=== PATIENT | female | born 1955 | race Hispanic/Latino ===

== ENCOUNTER → 2019-01-18 | Outpatient (CLI) | payer MEDICARE ==
--- NOTE | 2019-01-18 15:16 | Diagnostic Imaging Report ---
EXAM: BONE MINERAL DENSITY HISTORY: Bone mineralization evaluation COMPARISON: None DISCUSSION: Evaluation of the left hip and lumbar spine was performed utilizing DEXA Hologic bone densitometer. The study is technically adequate. Left hip femoral neck bone mineral density: 0.56 g/cm2, T-score is -2.6, Z-score is -1.2. Left hip total bone mineral density: 0.62 g/cm2, T-score is -2.6, Z-score is -1.4. Lumbar spine total bone mineral density: 0.57 gm/cm2, T-score is -4.3, Z-score is -2.6. Impression: Bone mineralization by WHO Classification is osteoporosis, the fracture risk is increased. Signed by: Dr. Joel Salazar M.D. on 01/18/2019 3:13 PM
== END ==
LOC: DX 14:39
PROVIDERS: ATTEND Internal Medicine
DX: M85.80 Other specified disorders of bone density and structure, unspecified site (principal)
CPT/HCPCS: 77080

== ENCOUNTER → 2024-11-12 | Outpatient (REF) | payer MEDICARE ==
[~2024-11-12] MED LIST: BACTRIM DS TAB1 EACH PO; FERROUS SULFAT325 MG PO; FOLIC ACID PO; GABAPENTIN100 MG PO; INHALER PO; LEVOTHYROXINE50 MC1; MAGNESIUM PO
== END ==
LOC: DX 10:20
PROVIDERS: ATTEND Internal Medicine
DX: M81.0 Age-related osteoporosis without current pathological fracture (principal)
CPT/HCPCS: 77080